=== PATIENT | male | born 1955 | race Hispanic/Latino ===

== ENCOUNTER 2017-07-01 15:50 | Outpatient (CLI) | payer OTHER ==
--- NOTE | 2017-07-01 19:35 | Cat Scan Report ---
FINAL REPORT EXAM: CT ABDOMEN PELVIS W CON HISTORY: LLQ PAIN TECHNIQUE: Serial axial images through the abdomen and pelvis with coronal and sagittal reconstruction. PRIORS: None. FINDINGS: There is atelectasis in the dependent portion of the lung bases. No pleural effusion is seen. There is fatty infiltration of the liver. There is a hypodense focus in the right lobe of the liver which is too small to definitely characterize. Gallbladder, pancreas, and spleen appear within normal limits. Adrenal glands appear nodular, but maintain adrenal form configuration. This may indicate hyperplasia. There is a 14 millimeter cyst in left kidney. There are additional hypodense foci in the left kidney which are too small to definitely characterize. Punctate nonobstructing calcifications are seen in the kidneys, bilaterally. Atherosclerotic changes are seen in the aorta. No aneurysmal dilatation is seen. Bladder appears normal. No free fluid. Appendix appears normal. There is scattered diverticula arising from the colon. There is an inflamed diverticulum arising from distal descending colon. There is wall thickening in a short segment of the colon adjacent to this. Degenerative changes are seen in the spine. IMPRESSION: 1. Findings are consistent with acute diverticulitis involving the distal descending colon. No drainable fluid collection is seen associated with this. 2. Left renal cyst. There are additional hypodense foci in the left kidney which are too small to definitely characterize. 3. Nonobstructing calcifications are seen in the kidneys. 4. Fatty infiltration of the liver. 5. There is a hypodense focus in the right lobe of the liver which is too small to definitely characterize. 6. Nodular appearance in the adrenal glands may indicate adrenal hyperplasia.
== END 2017-07-01 15:51 | disposition home or self-care (01) ==
LOC: CT 15:50
PROVIDERS: ATTEND Physician Assistant
DX: N28.1 Cyst of kidney, acquired (principal); K57.30 Diverticulosis of large intestine without perforation or abscess without bleeding; J98.11 Atelectasis; K76.0 Fatty (change of) liver, not elsewhere classified; N28.89 Other specified disorders of kidney and ureter; I70.0 Atherosclerosis of aorta; Z87.891 Personal history of nicotine dependence
CPT/HCPCS: 74177; Q9967

== ENCOUNTER 2017-12-26 05:57 | Day surgery (SDC) | payer OTHER ==
[~2017-12-26 05:57] MED LIST: ANCEF/STERILE WATER 2 GM/20 ML IV NR
[2017-12-26] MEDS ORDERED: NACL BACTERIOSTATIC INFILTRATI ONE (06:42)
[2017-12-26] MEDS ORDERED: XYLOCAINE 1% 20 mL ONE (06:46)
[2017-12-26] MEDS ORDERED: MARCAINE 0.25% INFILTRATI ONE ×2 (06:46→07:45)
[2017-12-26] MEDS ORDERED: ADRENALIN IV ONE ×2 (06:46→07:55)
[2017-12-26] MEDS ORDERED: SUBLIMAZE ONE (07:25)
[2017-12-26] MEDS ORDERED: XYLOCAINE MPF 2% ONE (07:25)
[2017-12-26] MEDS ORDERED: DIPRIVAN 10 MG/ML IV ONE (07:26)
[2017-12-26] MEDS ORDERED: ZOFRAN IV PRN (07:28)
--- NOTE | 2017-12-26 07:29 | Anesthesia Consultation ---
Anesthesia Consult and Med Hx Date of service: 12/26/17 - Airway Anesthetic Teeth Evaluation: Good ROM Head & Neck: Adequate Mental/Hyoid Distance: Adequate Mallampati Class: Class II Intubation Access Assessment: Probably Good - Pulmonary Exam CTA: Yes - Cardiac Exam Cardiac Exam: RRR - Pre-Operative Health Status ASA Pre-Surgery Classification: ASA3 Proposed Anesthetic Plan: General - Pulmonary Hx Smoking: Yes (STOPPED 2004 , 2 PPD X 15 YRS) Hx Sleep Apnea: No (MISSY PRE SCREEN HIGH RISK.) - Cardiovascular System Hx Hypertension: Yes (X 2 YRS) - Gastrointestinal Hx Gastroesophageal Reflux Disease: No - Endocrine Hx Non-Insulin Dependent Diabetes: No - Other Systems Hx Cancer: Yes (SKIN CA- REMOVED , NO CHEMO/RADIATION) Hx Obesity: Yes
--- NOTE | 2017-12-26 07:29 | Anesthesia Day of Surgery ---
Anesthesia Day of Surgery - Day of Surgery Patient Examined: Yes Patient H&P Reviewed: Yes Patient is NPO: Yes
[2017-12-26] MEDS ORDERED: XYLOCAINE 1% 20 mL INFILTRATI ONE (07:45)
[2017-12-26] MEDS ORDERED: PEPCID IV NR (08:00)
[2017-12-26] MEDS ORDERED: NACL 0.9% 1000 ML 1,000 ML IV SCH (08:00)
[2017-12-26] MEDS: DILAUDID IV PRN ×2 (08:45→08:58)
--- NOTE | 2017-12-26 08:45 | Short Stay Summary ---
Short Stay Documentation Date of service: 12/26/17 - History H&P: obtained from office - Allergies and Medications Current Medications: Allergies No Known Allergies Allergy (Verified 01/23/14 11:44) Home Medications Medication Instructions Recorded Confirmed Last Taken Type Lisinopril [Lisinopril] 20 mg PO DAILY 01/21/14 12/26/17 12/26/17 04:30 History Ibuprofen 800 mg PO PRN PRN 12/12/17 12/26/17 12/08/17 History Metformin HCl [Glucophage] 1,000 mg PO BID 12/12/17 12/26/17 12/25/17 History Active Medications Cefazolin Sodium (Ancef/Sterile Water 2 Gm/20 Ml) 2 gm IV PREOP NR Stop: 12/26/17 23:00 Famotidine (Pepcid) 20 mg IV PREOP NR Stop: 12/26/17 10:00 Last Admin: 12/26/17 07:22 Dose: 20 mg Hydromorphone HCl (Dilaudid) 0.5 mg IV Q10MIN PRN PRN Reason: Pain , Severe (7-10) Stop: 12/26/17 13:00 Sodium Chloride (Nacl 0.9% 1000 Ml) 1,000 mls @ 100 mls/hr IV DIRECT CORIN Last Admin: 12/26/17 07:20 Dose: 100 mls/hr Ondansetron HCl (Zofran) 4 mg IV ONCE PRN PRN Reason: Nausea And Vomiting Stop: 12/26/17 10:00 - Brief post op/procedure progress note Date of procedure: 12/26/17 Pre-op diagnosis: persistent right knee pain medial and lateral meniscal tears Post-op diagnosis: other (persistent right knee pain, large complex tears medial and lateral menisci, grade IV articular cartilage loss all 3 compartments , small loose bodies) Procedure: right knee arthroscopy partial medial and lateral meniscectomies Anesthesia: GETA Findings: as above Surgeon: HIRA JAIME Estimated blood loss: minimal Pathology: none Condition: stable - Hospital course Hospital course: no periooperative complications - Disposition Condition at discharge: Good Disposition: DC-01 TO HOME OR SELFCARE Short Stay Discharge Plan Follow up with: EZIO PATINO MD [Primary Care Provider] - 7 Days
--- NOTE | 2017-12-26 09:48 | Operative Report ---
PREOPERATIVE DIAGNOSES: Persistent right knee pain with mechanical symptoms, medial and lateral meniscal tears. POSTOPERATIVE DIAGNOSES: Persistent right knee pain with mechanical symptoms, large complex tears located within the posterior horn of the medial meniscus, large complex tears located within the anterior and posterior horn of the lateral meniscus, grade 4 articular cartilage loss of the medial tibial plateau, medial femoral condyle, grade 3 articular cartilage loss of the lateral femoral condyle and lateral tibial plateau, grade 4 articular cartilage loss of the central aspect of the patella and trochlea. Large osteophytes located off the nonweightbearing surface of the lateral femoral condyle and within the notch. Old prior anterior cruciate ligament tear. OPERATIVE PROCEDURE: Right knee arthroscopy, partial medial and lateral meniscectomies. SURGEON: Delgado Man MD. PARK WARDEN: None. ANESTHESIA: General. PREOPERATIVE ANTIBIOTICS: Ancef 2 grams IV within 1 hour of skin incision. DVT PROPHYLAXIS: Open toe, thigh compression stockings and SCD pumps to the nonoperative left lower extremity. OPERATIVE COMPLICATIONS: None. OPERATIVE HISTORY AND PHYSICAL: This is a 62-year-old male, who has had persistent progressively worsening right knee pain with mechanical symptoms, status post injury at work on 04/26/2016. The pain is markedly limiting his day-to-day activities and has failed to improve despite extensive nonoperative treatment. MRI scan was performed, which was positive for large joint effusion. Medial and lateral meniscal tears. Articular cartilage wear of the medial and patellofemoral compartments. The patient's MRI findings and diagnoses were discussed at length. After making sure the patient understood the diagnosis all questions answered. We discussed treatment alternatives of surgical and nonsurgical including risks and benefits of both have a long lengthy discussion, the patient opted to proceed with operative intervention. This will entail a right knee arthroscopy, partial medial and lateral meniscectomies and surgery as indicated. The risks of which were discussed to include, but not exclusive of infection, blood loss, nerve damage, loss of range of motion and persistent pain. Again, the patient understood, all his questions answered, and he wished to proceed with operative intervention. DESCRIPTION OF PROCEDURE: The patient was seen in the preop holding room area at which point informed consent was reviewed and appropriate right lower extremity was identified and then marked. The patient was then brought back to the operating room and placed supine on a standard operative room table at which point general anesthesia was administered and an LMA tube was inserted. After confirmation of adequate general anesthesia and checking appropriate placement of the LMA tube, we then made sure that all bony prominences were well padded. The arms were secured into position with aid of the arm boards. The head was secured in a nice neutral position as well. We made sure there were no wrinkles in the compression stockings on the left lower extremity and SCD pumps were applied to the left lower extremity. The right lower extremity was then examined under anesthesia. The patient was seen to have full range of motion 0-130 degrees of flexion. There was a trace positive Pablo and trace positive anterior drawer, negative posterior drawer. No varus or valgus instability as well as 30 degrees of flexion. No recurvatum or excessive internal rotation. Following examination under anesthesia, the right lower extremity was then prepped and draped in the usual sterile fashion. Prepping and draping, a timeout was called and appropriate right lower extremity was identified, which again had been marked in the preoperative holding room area. I began the procedure by first making a standard anterolateral portal with a #15 blade. Once the portal established, a cannula and blunt trocar was inserted into the intra-articular aspect of the knee joint. This went without difficulty or damage to articular cartilage. Once in place, the arthroscopic camera was immediately placed in the medial compartment establishing anteromedial portal by first inserting a spinal needle under direct arthroscopic visualization was confirmed to be in appropriate position and superior to the medial meniscus a 15 blade was then used to establish the anteromedial portal. Once the portal was established, a blunt trocar was inserted to widen the portal site followed by an arthroscopic probe. We began a diagnostic arthroscopy in the medial compartment. The patient had a large complex tear located in the posterior horn of the medial meniscus. There was evidence of prior medial meniscus repair. There was grade 4 articular cartilage loss of the medial tibial plateau and grade 4 articular cartilage loss for almost the entire weightbearing portion of the medial femoral condyle. The medial meniscus tear was irreparable. We performed a partial medial meniscectomy in standard fashion using series of basket punch and the 4.0 meniscal shaver getting down to a nice smooth stable healthy remaining border involving the white-white, white-red as well as a portion of the red-red zone. The anterior horn of the medial meniscus seemed to be intact and stable when probed. Inspection of the notch showed the ACL to have had a chronic rupture. The posterior cruciate ligament was intact and stable when probed. There was a large osteophyte located within the notch that was preventing full extension. This was removed using the arthroscopic shaver. We turned attention to the lateral compartment, placed in a [id number] position. Once in that position, we saw there was a large complex tear located in the posterior horn of the lateral meniscus as well as the anterior horn of the lateral meniscus. This was irreparable. We performed a partial lateral meniscectomy in standard fashion using series of basket punches and the 4.0 meniscal shaver getting down to a nice smooth stable healthy remaining border. There was grade 3 articular cartilage loss in the lateral femoral condyle and lateral tibial plateau. Inspection of the medial and lateral gutters showed to be small cartilaginous loose bodies present, which were removed using the arthroscopic shaver. Patellofemoral joint showed to be grade 4 articular cartilage loss, central aspect of patella and trochlea. There are also large osteophytes located in the nonweightbearing portion of the lateral femoral condyle within the gutter, especially suprapatellar pouch to be small cartilaginous loose bodies were removed using the arthroscopic shaver. We turned attention back to the lateral compartment and we performed a partial lateral meniscectomy using a series of basket punches and 4.0 meniscal shaver down to a nice, smooth, stable healthy remaining border all in all removing the white-white, white-red as well as a small portion of the red-red zones. The arthroscopic camera was then placed in the posterior aspect of the knee and we confirmed there were no loose bodies present, there were no root tears of menisci. The arthroscopic cannula was then removed from the posterior aspect of the knee, the arthroscopic pump was then turned off making sure there was good hemostasis and once this was confirmed, a straight full suction from the knee using arthroscopic cannula. Following this, all the arthroscopic instrumentation was removed. The two portal sites were then closed with 3-0 nylon in simple fashion. Adaptic, 4 x 4s, ABD, open toe thigh-high compressive stocking by a Donjoy Cryo/Cuff blanket and Dheeraj wrap was applied. The patient was then awakened from general anesthesia without complications, taken to recovery room in stable condition. Standard postoperative orders were written. JOB# [id number] VS/NTS
[2017-12-26] MEDS ORDERED: PERCOCET 5/325 PO SCH (10:10)
[2017-12-26] MEDS ORDERED: ZOFRAN ONE (10:37)
[2017-12-26 13:06] VITALS: BP 135/85
--- NOTE | 2017-12-26 22:16 | Post Anesthesia Evaluation ---
- Post Anesthesia Evaluation Patient Participated: Yes Airway Patent: Yes Stable Respiratory Function: Yes Nausea/Vomiting: No Temp > 96.8F: Yes Pain Manageable: Yes Adequeate Hydration: Yes Anesthesia Complications: No
== END 2017-12-26 10:33 | disposition home or self-care (01) ==
LOC: OR 05:57
PROVIDERS: ATTEND Orthopaedic Surgery
DX: S83.271A Complex tear of lateral meniscus, current injury, right knee, initial encounter (principal); S83.231A Complex tear of medial meniscus, current injury, right knee, initial encounter; M94.8X6 Other specified disorders of cartilage, lower leg; I10 Essential (primary) hypertension; E11.9 Type 2 diabetes mellitus without complications; E66.9 Obesity, unspecified; Z68.38 Body mass index [BMI] 38.0-38.9, adult; Z98.890 Other specified postprocedural states; Z79.899 Other long term (current) drug therapy; Z98.41 Cataract extraction status, right eye; Z79.84 Long term (current) use of oral hypoglycemic drugs; Z87.891 Personal history of nicotine dependence; Z85.828 Personal history of other malignant neoplasm of skin; X58.XXXA Exposure to other specified factors, initial encounter; Y93.89 Activity, other specified; Y92.89 Other specified places as the place of occurrence of the external cause
CPT/HCPCS: 29880; 82962; 97161; G8978; G8979; G8980; J0171; J0690; J1170; J2405; J2704; J3010; J7030